=== PATIENT | male | born 1990 | race Two or more races ===

== ENCOUNTER 2018-06-12 19:55 | Emergency (ER) | payer OTHER ==
[~2018-06-12] VITALS: Ht 177.8 cm; Wt 88.7 kg
[2018-06-12] MEDS ORDERED: CARBAMIDE PEROXIDE EAR DROPS 6.5%, 15ML EACH EAR ONE (20:30)
--- NOTE | 2018-06-12 20:55 | NUR ---
ASSESSMENT MADE. PA AT BEDSIDE.
[2018-06-12] MEDS ORDERED: CARBAMIDE PEROXIDE EAR DROPS 6.5%, 15ML ONE (21:08)
[2018-06-12] MEDS ORDERED: IBUPROFEN 200 MG TABLET PO ONE (22:00)
[2018-06-12] MEDS ORDERED: DIPHENHYDRAMINE 25 MG CAPSULE PO ONE (22:00)
[2018-06-12] MEDS ORDERED: ONDANSETRON ODT 4 MG ONE (22:16)
[2018-06-12] MEDS ORDERED: DIPHENHYDRAMINE 25 MG CAPSULE ONE (22:16)
[2018-06-12] MEDS ORDERED: IBUPROFEN 200 MG TABLET ONE (22:16)
[2018-06-12] MEDS ORDERED: ONDANSETRON ODT 8 MG PO ONE (22:30)
--- NOTE | 2018-06-12 22:32 | NUR ---
BILATERAL EAR IRRIGATION DONE. REMOVED LARGE WAX ON BOTH EARS. PATIENT STARTED TO VOMIT. MEDICATED.
--- NOTE | 2018-06-12 22:55 | NUR ---
CT SCAN RESULTED. CHART UP FOR MD TO RE-EVAL.
--- NOTE | 2018-06-12 23:13 | NUR ---
PATIENT DISCHARGED WITH PRESCRIPTIONS AND INSTRUCTION GIVEN TO . VERBALIZED UNDERSTANDING.
[2018-06-12 23:14] VITALS: BP 114/67
== END 2018-06-12 23:16 | disposition home or self-care (01) ==
LOC: ED 22:26
DX: G43.C1 Periodic headache syndromes in child or adult, intractable (principal); H61.23 Impacted cerumen, bilateral
CPT/HCPCS: 69210; 70450; 99284; Q0162; Q0163